=== PATIENT | female | born 1950 | race Caucasian/White ===

== ENCOUNTER 2016-12-04 19:49 | Emergency (ER) | payer MEDICARE, OTHER ==
[~2016-12-04] VITALS: Ht 177.8 cm; Wt 87.9 kg
[~2016-12-04 19:49] MED LIST: ACET-2723 PO; ASPI-557 PO; CALC625T32 PO; CALC750T4 PO; CHLO4TAB32 PO; DIPH25TA54 PO; ESTR0.624 PO; [UNRECOGNIZED DRUG - CODE] PO
[2016-12-04 20:18] VITALS: Ht 177.8 cm; Wt 87.9 kg
--- NOTE | 2016-12-04 20:35 | NUR ---
IMAGING PT TO IMAGING AT THIS TIME
--- NOTE | 2016-12-04 20:36 | ERPDOC ---
Departure Disposition Decision Date: December 04, 2016 Disposition Decision Time: 20:57 (ELHAM REYNOLDS APRN) Disposition: 01 DISCHARGED HOME, SELF-CARE Impression Impression (ELHAM REYNOLDS APRN) Impression: Primary Impression: Radius fracture Encounter type: initial encounter Radius location: distal Fracture type: closed Laterality: right Severity: Moderate (ELHAM REYNOLDS APRN) Condition: Improved Seen By: Mid-level only (ELHAM REYNOLDS APRN) Referrals: FELIPA STOKES MD (Family) Patient Instructions: Wrist Fracture in Adults (ED) Problems/Meds/Labs Reviewed?: Yes Medications reviewed and manag: Yes (ELHAM REYNOLDS APRN) Additional Instructions: Elevate wrist and keep iced. You may take norco 5/325mg 1-2 tabs every 4-6 hours as needed for pain. This medication may cause drowsiness so avoid operating heavy machinery, driving or drinking alcohol while taking. This medication may cause constipation so you may need to take a stool softener. Call [facility] tomorrow and let them know that the ED provider spoke with Dr. Pruitt and he said Dr. Reed is to see you tomorrow in office. Phone # [phone] You may take OTC ibuprofen for pain as needed every 6 hours. You may loosen marino wrap over splint to allow for swelling as needed. Follow treatment plan. Follow up care ordered?: Yes Mental Status: Alert, Oriented (ELHAM RYENOLDS APRN) Scripts Hydrocodone/Acetaminophen ([place] 5-325 Tablet) 5-325 Tablet 1-2 TAB PO Q4-6HPRN for PAIN, #30 TAB Prov: ELHAM REYNOLDS APRN 12/04/16 HPI - Upper Extremity General Chief Complaint: Upper Extremity Injury Stated Complaint: RT WRIST INJ Time Seen by MD: 20:30 Source: patient (ELHAM REYNOLDS APRN) HPI - Upper Extremity Initial Comments 66-year-old female presents to ER with right wrist pain after falling backwards and breaking her fall with her right wrist. Patient says her wrist is painful to move. Patient denies any other injuries from fall. Pain/Severity Scale: Now: 0/10 (no movement), Worst: 10/10 (with movement) Pain/Injury Location: right wrist Method of Injury/Context: fell Quality: aching (ELHAM REYNOLDS APRN) Allergies: Coded Allergies: Penicillins (Verified Allergy, Severe, SWELLING, 12/04/16) Sulfa (Sulfonamide Antibiotics) (Verified Allergy, Mild, HIVES, 12/04/16) lidocaine (Verified Adverse Reaction, Mild, TACHYCARDIA, 12/04/16) Past History Past Medical History Metabolic: hypothyroidism, DENIES: diabetes, hypertension Cardiac: DENIES: angina Respiratory: DENIES: asthma GI: GERD, DENIES: ulcers Female: DENIES: renal insufficiency Neurological: migraines, DENIES: seizures Musculoskeletal: DENIES: rheumatoid arthritis Integumentary: other ("skin cancer") Psychological: DENIES: depression (ELHAM REYNOLDS APRN) Surgical History Reproductive/: hysterectomy (ELHAM REYNOLDS APRN) Family History Family PMH: FOUND: other (noncontributory) (ELHAM REYNOLDS APRN) Vaccines Hx Influenza Vaccination: Yes (APR 2015) Hx Pneumococcal Vaccination: Yes (JUL 2015) (ELHAM REYNOLDS APRN) Social History Marital Status: Sexuality: male partner (ELHAM REYNOLDS APRN) Review of Systems Constitutional Constitutional: DENIES: chills, dizziness, fever, weakness (ELHAM REYNOLDS FISH PITCHER) Eyes General: DENIES: erythema, exudate Lids/Accessories: DENIES: erythema, swelling (ELHAM REYNOLDS FISH PITCHER) ENMT Ears: DENIES: pain Sinuses: DENIES: congestion, rhinorrhea Mouth/Throat: DENIES: sore throat (ELHAM REYNOLDS FISH PITCHER) Cardiovascular Cardiac: DENIES: chest pain, murmur Rhythm/Rate: DENIES: palpitations (ELHAM REYNOLDS FISH PITCHER) Pulmonary Respiratory: DENIES: cough, dyspnea (ELHAM REYNOLDS FISH PITCHER) GI Upper Abdomen: DENIES: nausea, pain, vomiting Lower Abdomen: DENIES: diarrhea, pain (YUSUF REYNOLDSS A FISH PITCHER) General: DENIES: dysuria, pain (YUSUF REYNOLDSS A FISH PITCHER) Musculoskeletal General: DENIES: joint pain, pain, tenderness (ELHAM REYNOLDS A FISH PITCHER) Integumentary Skin: DENIES: color change, itching, rash (YUSUF REYNOLDSS A FISH PITCHER) Neurological General: DENIES: ataxia, change in strength, numbness, paralysis/paresis, weakness (YUSUF REYNOLDSS A FISH PITCHER) Psychiatric Psychiatric: DENIES: anxiety, depression, nervousness (YUSUF REYNOLDSS A FISH PITCHER) Physical Exam General General Nourishment: well nourished, well developed, no acute distress, adult General Body Habitus: well groomed (YUSUF REYNOLDSS A FISH PITCHER) Vitals and Pain Weight: Kilograms: Height (feet): 5 Height (inches): 9.00 Triage Pain Scale: (YUSUF REYNOLDSS A FISH PITCHER) Eyes (brief) Eyes Brief: found: EOMI (YUSUF REYNOLDSS A FISH PITCHER) ENMT (brief) ENMT Brief: NOT FOUND: nasal exudate, nasal swelling (YUSUF REYNOLDSS A FISH PITCHER) Neck (brief) Neck: FOUND: trachea midline (YUSUF REYNOLDSS A FISH PITCHER) Respiratory (brief) Respiratory: FOUND: clear all starks, equal bilaterally, symmetrical (YUSUF REYNOLDSS A FISH PITCHER) Cardiovascular (brief) Cardiac: FOUND: regular rate, regular rhythm (YUSUF REYNOLDSS A FISH PITCHER) Fastrak Hand/Forearm Hand/Forearm : Upper Extremity: Right Elbow: extension intact, flexion intact, NOT FOUND: deformity, ecchymosis, erythema, tender Forearm: deformity (over radius), pronation intact, supination intact, NOT FOUND: ecchymosis, erythema, swelling Wrist: ROM intact, ecchymosis (over radius), swelling (over radius), tender (TTP over radius), NOT FOUND: deformity, snuff box tenderness, thenar eminence tender Hand: NOT FOUND: deformity, ecchymosis, erythema, swelling, tender Fingers: cap refill <2sec ea digit, impaired grasp (due to pain), soft touch intact, NOT FOUND: ecchymosis, erythema, impaired abduction, impaired adduction, impaired extension, impaired flexion, swelling, tender Radial Pulse: 2+ (YUSUF REYNOLDSS A FISH PITCHER) Integumentary (brief) Integumentary Brief: FOUND: dry, pink, warm (YUSUF REYNOLDSS A FISH PITCHER) Neurologic (brief) Neurological Brief: FOUND: motor-no gross deficits, sensory-no gross deficits ( RODOLFOELHAM A FISH PITCHER) Psychiatric (brief) Psychiatric Brief: FOUND: alert, normal affect, oriented (YUSUF REYNOLDSS A FISH PITCHER ) Differential Diagnoses Considering: Contusion, Fracture, Sprain, Strain (ELHAM REYNOLDS APRN) Procedures Procedures Performed Procedures Performed: Reduction of Fracture (VAMSI ANG MD) Reduction of Joint/Fracture Procedure Joint/Fracture Reduc : Consent Obtained: Yes Pre-procedure NV: FOUND: cap refill < 3 sec, good movement, good sensation Location: right distal radius Anesthesia: hematoma block (performed by Elham Reynolds, nurse practitioner) Attempts: 2 Post-procedure NV: FOUND: cap refill < 3 sec, good movement, good sensation Post-procedure xray results Successful reduction of distal radial head Comments Performed by Vamsi Ang M.D. (VAMSI ANG MD) Progress Results/Orders Orders Procedure Category Date Status Time Wrist Right 3-4 Views RAD 12/04/16 Taken 20:23 Bupivacaine 0.5% PHA 12/04/16 Complete (Marcaine 0.5%) 21:15 Wrist Right 2 View RAD 12/04/16 Taken Sling EDM 12/04/16 Transmitted 22:51 Hydrocodone/Apap PHA 12/04/16 Complete 5/325 Prepack ([place] 5 23:15 (VAMSI ANG MD) Medications Current ED Medications Bupivacaine HCl (Marcaine 0.5%) 150 mg O ONCE INFIL ; Start 12/04/16 at 21:15; Stop 12/04/16 at 21:16; Status DC Acetaminophen/ Hydrocodone Bitart (NORCO 5 (PrePack)) 1 pack O ONCE SENT HOME Last administered on 12/04/16t 23:04; Start 12/04/16 at 23:15; Stop 12/04/16 at 23:16; Status DC (VAMSI ANG MD) Consult/PCP Consult/PCP : Type of discussion: Phone Consult/PCP Discussion Details I discussed patient's HPI, PMH, exam findings and x-rays with Dr. Pruitt. Dr. Pruitt would like patient to have a hematoma block then hung in traps. Then he would like to have wrist reduced and then splinted. Patient will need to follow with Dr. Reed in office tomorrow. (ELHAM REYNOLDS APRN) Xray Xray : Xray: Wrist R Interpretation: Abnormal, Interpreted by Me (distal radial fracture, good reduction of fracture) (VAMSI ANG MD) ELHMA REYNOLDS APRN December 04, 2016 20:36 VAMSI ANG MD December 05, 2016 01:08
--- NOTE | 2016-12-04 20:41 | NUR ---
IMAGING PT RETURN FROM IMAGING AT THIS TIME.
[2016-12-04] MEDS ORDERED: IBUP-1724 PO (20:48)
--- NOTE | 2016-12-04 20:55 | NUR ---
PROVIDER Debbie REYNOLDS [place] CONSTABLE AT BEDSIDE
[2016-12-04] MEDS ORDERED: BUPIVACAINE 0.5% (5mg/ml) 30ml INJ SDV INFIL ONE (21:15)
--- NOTE | 2016-12-04 23:07 | NUR ---
STUART REYES APRN ORDERED FOR PT TO TAKE NORCO TABLET FROM PREPAK. ADMINISTERED AT THIS TIME.
[2016-12-04] MEDS ORDERED: HYDR-4246 PO (23:08)
[2016-12-04] MEDS ORDERED: HYDROCODONE/APAP 5/325 (PrePack) SENT HOME ONE (23:15)
--- NOTE | 2016-12-04 23:17 | NUR ---
IMAGING PT TO IMAGING AT THIS TIME.
--- NOTE | 2016-12-04 23:25 | NUR ---
IMAGING PT RETURN FROM IMAGING AT THIS TIME.
[2016-12-04 23:44] VITALS: BP 143/87; PULSE 73; RESP 18; TEMP 97.9; O2SAT 98
--- NOTE | 2016-12-04 23:44 | NUR ---
DEPART PT GIVEN DI FOR WRIST FRACTURE IN ADULTS, NORCO, F/U WITH ORTHO. RX/PREPAK PROVIDED FOR NORCO. PT VERBALIZES UNDERSTANDING OF DI, MEDS, AND F/U. QUESTIONS ASKED/ANSWERED - DENIES FURTHER QUESTIONS/NEEDS AT THIS TIME. PERSONAL BELONGINGS GATHERED. RIGHT WRIST SPLINTED AND IN SLING - ICE PACK APPLIED. PT ESCORTED/AMBULATED TO ED EXIT - GAIT STABLE, NO SIGN OF DISTRESS AT THIS TIME.
--- NOTE | 2016-12-05 08:03 | DI ---
Indication: ITS.REASON: post reduction flim PROCEDURE: WRIST RIGHT 2 VIEW: Encounter: Initial Comparison: Radiographs from earlier on the same date Findings: Interval closed reduction of the comminuted distal radial fracture with improved alignment of the fracture fragments. Tiny ulnar styloid fracture also seen. Splinting material obscuring fine bony detail. Impression: Interval closed reduction and splinting of the distal radial and ulnar styloid fractures. .
--- NOTE | 2016-12-05 08:17 | DI ---
Indication: ITS.REASON: INJURY, PAIN, SWELLING PROCEDURE: WRIST RIGHT 3-4 VIEWS: Encounter: Initial Comparison: None Findings: There is a comminuted impacted and dorsally angulated intra-articular fracture of the distal radius. There is a mildly displaced tiny ulnar styloid fracture also present. No additional acute fracture or dislocation is seen. There is approximately 30 degrees dorsal angulation of the distal radial articular surface. Impression: Closed posttraumatic intra-articular Colles' fracture. .
== END 2016-12-04 23:44 | disposition home or self-care (01) ==
LOC: ED 19:49
DX: S52.531A Colles' fracture of right radius, initial encounter for closed fracture (principal); S52.611A Displaced fracture of right ulna styloid process, initial encounter for closed fracture; W01.0XXA Fall on same level from slipping, tripping and stumbling without subsequent striking against object, initial encounter; Y93.H2 Activity, gardening and landscaping; Y92.007 Garden or yard of unspecified non-institutional (private) residence as the place of occurrence of the external cause; Y99.8 Other external cause status

== ENCOUNTER → 2016-12-10 | Outpatient (CLI) | payer MEDICARE, OTHER ==
[~2016-12-10] MED LIST changes: -ACET-2723 PO; +HYDR-4246 PO; +IBUP-1724 PO; +MULT-933 PO; +TRAM50TA53 PO
--- NOTE | 2016-12-10 10:42 | DI ---
INDICATION: ITS.REASON: Z01.89 PRE-OP EXAM PROCEDURE: CHEST 2-VIEWS UPRIGHT (PA \T\ LAT) Encounter: Initial COMPARISON: None FINDINGS: The lungs are clear without evidence of focal abnormal airspace opacity. There is no pleural effusion or pneumothorax. The heart size, mediastinal contours and pulmonary vascularity are within normal limits. There is no significant skeletal abnormality. IMPRESSION: No acute cardiopulmonary disease. .
[2016-12-10 10:56] LABS: EOSINOPHILS # (AUTO) 0.2 T/MM3 (0-0.5); EOSINOPHILS % (AUTO) 3.8 % (0-4); HGB - HEMOGLOBIN 13.6 GM/DL (12-16); LYMPHOCYTES # (AUTO) 2.4 T/MM3 (1-4.8); LYMPHOCYTES % (AUTO) 39.2 % (23-45); MEAN CORPUSCULAR HGB 32.8 UUG (26-34); MEAN CORPUSCULAR HGB CONC(MCHC 33.2 GM/DL (31-37); MEAN CORPUSCULAR VOLUME 98.8 UM3 (80-100); MEAN PLATELET VOLUME 10.7 UM3 (9.4-12.4); MONOCYTES # (AUTO) 0.5 T/MM3 (0-0.8); MONOCYTES % (AUTO) 8.3 % (0-9.0); NEUTROPHILS % (AUTO) 48.7 % (33-66); RED BLOOD COUNT 4.15 M/MM3 (4.00-5.20); WBC - WHITE BLOOD COUNT 6.1 T/MM3 (4.5-11.0)
[2016-12-10 11:06] LABS: ANION GAP 16 MEQ/L (5-15); BUN/CREATININE RATIO 23 RATIO (6-26); CALCIUM 9.5 MG/DL (8.4-10.2); CHLORIDE 104 MEQ/L (98-107); CO2 - CARBON DIOXIDE 25 MEQ/L (22-30); CREATININE 0.7 MG/DL (0.7-1.2); GLOMERULAR FILTRATION RATE 83; GLUCOSE 83 MG/DL (65-110); POTASSIUM 4.4 MEQ/L (3.6-5); SODIUM 145 MEQ/L (134-144)
== END ==
LOC: IMA 10:03
PROVIDERS: ATTEND Orthopaedic Surgery
DX: Z01.812 Encounter for preprocedural laboratory examination (principal); S52.91XA Unspecified fracture of right forearm, initial encounter for closed fracture; Z01.810 Encounter for preprocedural cardiovascular examination
CPT/HCPCS: 36415; 80048; 85025; 93005

== ENCOUNTER 2016-12-11 05:48 | Day surgery (SDC) | payer MEDICARE, OTHER ==
--- NOTE | 2016-12-10 10:18 | HPF ---
CHIEF COMPLAINT Comminuted closed intraarticular right distal radius fracture. HISTORY OF PRESENT ILLNESS Ms. Montiel is a very pleasant 66-year-old female seen today as a new patient to me. She sustained an injury last Friday evening when she fell in the yard, landing on her outstretched right arm. She was seen at [facility] ER. She underwent closed reduction with hematoma block by the ER staff which obtained a much improved position. She was placed in a sugar-tong splint. She admits to have removed the sugar-tong splint because of swelling. Denies numbness or tingling. Pain is described as moderate. It is located at the wrist . No prior history of injury. She is right-hand dominant. She had taken some [place], but this has caused her some nausea. She has been icing and elevating some. Pain is aggravated by any motion of the wrist, grasping or direct pressure. Denies any other injury. PAST MEDICAL HISTORY Hypothyroidism. GERD. Migraine headaches. MEDICATIONS Levoxyl. Premarin. Tylenol. Aspirin. Benadryl. ALLERGIES Sulfa, Xylocaine. SURGICAL HISTORY Hysterectomy. SOCIAL HISTORY The patient is a nonsmoker, nondrinker. Denies illicit drug use. FAMILY HISTORY Significant for father and sister with arthritis. Mother with diabetes. PHYSICAL EXAMINATION Height 5 ft. 9 in. Weight 201. Blood pressure 121/65. Pulse 60. Constitutional: Well developed, well-nourished. Psychiatric: Alert and oriented x 3, NAD, of normal mood and affect. Skin: No rash or abnormal lesions in bilateral affected extremities. Vascular: 2+ palpable pulses with brisk capillary refill all digits. Neuro: Normal sensation to light touch in bilateral affected extremities. MSK: Gait: Normal-appearing gait without antalgia. No assistive device. Affected extremity. Right upper Inspection: The patient has a sugar-tong splint intact. The Addy bandage overlying has been moved. She has mild to moderate swelling of the hand and fingers. Palpation: Tenderness of the wrist. No tenderness of the hand or elbow. Range of motion: Wrist range of motion is not assessed. She has normal motion of the fingers and shoulder strength. Normal hand strength. Special Tests: Brisk capillary refill to all digits. Contralateral Extremity: Complete examination was performed. Skin is intact. No swelling, no tenderness to palpation. Normal ROM and normal strength and stability were noted. IMAGING X-ray type: Two-view right wrist. Obtained at [facility]. Interpretation: Two views of the right wrist were obtained. There is a comminuted intraarticular fracture of the right distal radius with approximately 15 degrees dorsal angulation. Preoperative imaging was compared to this as well as reduction films showing slight loss of reduction. Radial height is fairly well maintained. There is a small ulnar styloid fracture as well. Bone mineralization is otherwise normal. Impression: Comminuted closed intraarticular right distal radius and ulnar styloid fracture. ASSESSMENT Closed comminuted intraarticular distal radius and ulnar styloid fracture. PLAN I discussed the findings today with the patient regarding the diagnosis, imaging , history, and physical exam. The diagnosis was discussed utilizing models and diagrams. The natural history of the diagnosis was discussed. Options for treatment were reviewed. The patient has already shown some loss of reduction. I recommended open reduction internal fixation of the right distal radius. We discussed the surgery including the technique, rehabilitation, recuperation and overall expectations. We also discussed the risks, benefits, alternatives and potential complications. Will plan to get her scheduled for surgery as soon as possible. We discussed postoperatively extensive icing. As she will have a much smaller splint, we may use a foam elevator as well. Will have to monitor pain medications. She has been fairly intolerant of [place] at this point. Will plan to get her scheduled. BRICE
[2016-12-11] VITALS (18 sets, daily range): BP systolic 124–150; BP diastolic 55–69; PULSE 62–80; RESP 10–16; TEMP 97.1–97.9; O2SAT 94–99; Ht 175.3 cm; Wt 90.6 kg
[~2016-12-11] VITALS: Ht 175.3 cm; Wt 90.6 kg
[~2016-12-11 05:48] MED LIST changes: -TRAM50TA53 PO
--- OUTSIDE RECORDS SUMMARY | 2016-12-11 05:53 | XMS REPORT | Continuity of Care Document ---
Author Author [facility] Organization [facility] Address Unknown Phone Unavailable Support Name Relationship Address Phone FELIPA STOKES MD Caregiver [address] [place] [address] Unavailable NOVEMBERDAHLIA DO Caregiver [address] [address] Unavailable ROMY MARRERO Next Of Kin [address], [place] [phone] c Insurance Providers Guarantor Gene Marrero Address [address] [place] [address] c Email [email or web address] Payer [facility] [employer] [facility] Policy Number [id number] Subscriber's Name Gene Marrero Relationship 18 Self Effective Date 12 Payer Medicare Policy Number [id number] Subscriber's Name Gene Marrero Relationship 18 Self Chief Complaint and Reason for Visit Chief Complaint Upper Extremity Injury Reason for Visit [id number] Problems Past Problems Medical Problem Onset Date Radius fracture Unknown Medications Current Home Medications Medication Dose Units Route Directions Days Qty Instructions Start Date Aspirin (Aspir 81) 81 Mg Tablet.dr 81 Mg Oral Daily 09/07/15 Calcium Carbonate (Tums) 300 Mg Tab.chew 1-2 Tab Oral As Needed 09/07/15 Calcium Polycarbophil (Fiber Tabs) 625 Mg Tablet 625 Mg Oral Daily 09/07/15 Chlorpheniramine Maleate 4 Mg Tablet 1 Mg Oral Daily 09/07/15 Diphenhydramine Hcl (Benadryl Allergy) 25 Mg Tablet 12.5 Mg Oral Bedtime 09/07/15 Estrogens,Conjugated (Premarin) 0.625 Mg Tablet 0.25 Tab Oral Daily 09/07/15 Hydrocodone/Acetaminophen ([place] 5-325 Tablet) 5-325 Tablet 1-2 Tab Oral Every 4-6 Hours Prn for Pain 30 Tablet 12/04/16 Ibuprofen 200 Mg Tablet 200 Mg Oral Every 4 Hours as needed for Pain 12/04/16 Levothyroxine Sodium (Levoxyl) 100 Mcg Tablet 1,100 Mcg Oral Daily 09/07/15 Social History Social History Problem Response Recorded Date/Time Onset Date Status Hx Substance Use No 12/04/2016 8:48pm Not Applicable Not Applicable Hx Alcohol Use No 12/04/2016 8:48pm Not Applicable Not Applicable Has the pt used tobacco in the last 12 months No 09/08/2015 8:49am Not Applicable Not Applicable Query Response Start Date Stop Date Smoking Status Never smoker Hospital Discharge Instructions No hospital discharge instructions. Plan of Care Discharge Date 12/04/16 11:44pm Disposition 01 DISCHARGED HOME, SELF-CARE Condition at Discharge Improved Instructions/Education Provided Wrist Fracture in Adults (ED) Prescriptions See Medication Section Referrals FELIPA STOKES MD Address: [address] [address] Additional Instructions/Education Elevate wrist and keep iced. You may take norco 5/325mg 1-2 tabs every 4-6 hours as needed for pain. This medication may cause drowsiness so avoid operating heavy machinery, driving or drinking alcohol while taking. This medication may cause constipation so you may need to take a stool softener. Call [facility] tomorrow and let them know that the ED provider spoke with Dr. Pruitt and he said Dr. Reed is to see you tomorrow in office. Phone # [phone] You may take OTC ibuprofen for pain as needed every 6 hours. You may loosen marino wrap over splint to allow for swelling as needed. Follow treatment plan. Care Plan and Goals Physician Care Plan Problem: Radius fracture Goal: Follow up with primary care provider Instructions: Take medications and follow care plan as discussed/written Functional Status No functional status results. Allergies, Adverse Reactions, Alerts Allergen Type Severity Reaction Status Last Updated Penicillin Allergy Severe SWELLING Active 12/04/16 Sulfa (Sulfonamide Antibiotics) Allergy Mild HIVES Active 12/04/16 Lidocaine Adverse Reaction Mild TACHYCARDIA Active 12/04/16 Immunizations Query Response on File Recorded Date/Time Hx Influenza Vaccination Y APR 2015 09/08/15 8:49am Hx Pneumococcal Vaccination Y JUL 2015 09/08/15 8:49am Hx Influenza Vaccination Y APR 2015 09/08/15 8:49am Tdap Vaccine Hx UTD PER PT 12/04/16 11:40pm Vital Signs Acute Vital Signs Vital Response Date/Time Temperature (Fahrenheit) 97.9 deg F (96.8 - 99.1) 12/04/2016 11:44pm Temperature (Calculated Celsius) 36.95001 degrees C (36.0 - 37.3) 12/04/2016 11:44pm Pulse Rate (adult) 73 bpm (60 - 100) 12/04/2016 11:44pm Respiratory Rate 18 breaths/min (10 - 20) 12/04/2016 11:44pm O2 Sat by Pulse Oximetry 98 % (90 - 100) 12/04/2016 11:44pm Blood Pressure 143/87 mm Hg 12/04/2016 11:44pm Height (Feet) 5 feet 12/04/2016 8:18pm Height (Inches) 10.00 inches 12/04/2016 8:18pm Weight (Kilograms) 87.900 kg 12/04/2016 8:18pm Body Mass Index (BMI) 27.0 12/04/2016 8:18pm Results No known relevant diagnostic tests, laboratory data and/or discharge summary. Procedures Procedure Status Date Provider(s) Breast tomosynthesis bi Completed 09/12/16 [id number]"SCREENING MAMMOGRAPHY, PRODUCING DIRECT DIGITAL IMAGE Completed Encounters Encounter Location Arrival/Admit Date Discharge/Depart Date Attending Provider Departed Emergency Room [facility] 12/04/16 7:49pm 12/04/16 11: 44pm DAHLIA DUNN DO Registered [facility] 09/12/16 12:52pm KIARA SALGADO Recent Diagnosis
--- NOTE | 2016-12-11 06:40 | ANESPREOP ---
Anesthesia Record Date and Time DATE: 12/11/16 TIME: 06:39 Pre-Op Diagnosis Radius FX Right Proposed Surgical Procedure ORIF R. DISTAL RADIUS NPO since: MN Allergies: Coded Allergies: Penicillins (Verified Allergy, Severe, SWELLING, 12/04/16) Sulfa (Sulfonamide Antibiotics) (Verified Allergy, Mild, HIVES, 12/04/16) codeine (Verified Allergy, Unknown, NAUSEA&VOMITING, 12/10/16) lidocaine (Verified Adverse Reaction, Mild, TACHYCARDIA, 12/04/16) Ht/Wt/BMI Height: 5 ' 9.00 " Weight: 90.600 kg BMI: 29.5 kg/m2 Vital Signs Date Time Temp Pulse Resp B/P Pulse Ox O2 Delivery O2 Flow Rate FiO2 12/11/16 06:22 97.9 62 16 146/69 96 Room Air Medications Inpatient Medications Current Medications Medications (Trade) Dose Ordered Sig/Mackenzie Start Time Stop Time Status Last Admin Dose Admin Lactated Ringer's (Lactated Ringers) 1,000 ml @ 50 mls/hr Q20H 12/11/16 07:00 Aspirin (Aspir 81) 81 Mg Tablet.dr, 81 MG PO DAILY, (Reported) Last Taken: on 12/09/16 Calcium Carbonate (Tums) 300 Mg Tab.chew, 1-2 TAB PO PRN, (Reported) Last Taken: on 12/09/16 Calcium Polycarbophil (Fiber Tabs) 625 Mg Tablet, 625 MG PO DAILY, (Reported) Last Taken: on 12/09/16 Chlorpheniramine Maleate (Chlorpheniramine Maleate ) 4 Mg Tablet, 1 MG PO DAILY, (Reported) Last Taken: on 12/10/16 Diphenhydramine HCl (Benadryl Allergy) 25 Mg Tablet , 12.5 MG PO HS, (Reported) Last Taken: on 12/09/16 Estrogens,Conjugated (Premarin) 0.625 Mg Tablet, 0.25 TAB PO DAILY, (Reported) Last Taken: on 12/10/16 Hydrocodone/Acetaminophen ([place] 5-325 Tablet) 5- 325 Tablet, 1-2 TAB PO Q4-6HPRN Last Taken: on 12/10/16 Ibuprofen (Ibuprofen) 200 Mg Tablet, 200 MG PO Q4H PRN for PAIN, (Reported) Last Taken: on 12/09/16 Levothyroxine Sodium (Levoxyl) 100 Mcg Tablet, 1, 100 MCG PO DAILY, (Reported) Last Taken: on 12/11/16 0400 Multivitamin (Multi-Day Vitamins) 1 Each Tablet , 1 TAB PO DAILY, (Reported) Last Taken: on 12/10/16 Currently on Beta Heaht: No Medical/Surgical History Anesthesia PMH: Reports: Cancer (SKIN CA LEFT EAR), Reflux, Thyroid Disease, Denies: *Diabetes, Anesthesia Reactions (NO AIRWAY ISSUES), Arthritis, Blood Transfusion Reac, Clotting Problems, Glaucoma, Malignant Hyperthermia Smoking Status: Never smoker Use Chewing Tobacco?: No Second Hand Exposure: No Substance Use Type: does not use Alcohol Intake: none HX of Last Menstrual Period: HYST. Past Surgical History Orthopedic Surgeries: Abdominal Surgeries: Genitourinary Surgeries: Cardiac Surgeries: Endocrine Surgeries: Reproductive Surgeries: Yes - HYST. Neurological Surgeries: Ear Surgeries: Nose Surgeries: Throat Surgeries: Other Surgeries: Yes - LEFT BREAST BX,SKIN CA REMOVED Anesthesia Adverse Reactions: FOUND none Family Hx of Anesthesia Advers: none Hx of Motion Sickness: No Pertinent Findings EKG Rhythm: Sinus Rhythm Physical Exam Respiratory: Bilat breath sounds equal, Lungs clear Cardiovascular: FOUND Regular rate, rhythm, FOUND No murmur Airway Assessment Mallampati Score: I TMD: 3 Fingerbreadths Neck Extension: Good Overall Assessment: No Airway Concerns ASA: 2 Plan Anesthesia Plan: LMA Discussion Discussed risks/options/alternatives of anesthesia and questions answered. Patient consents. Nursing pain assessment noted. Attestation Statement Prior to the delivery of any anesthetic medication, I examined the patient, developed the plan, obtained the patient's consent and discussed the risk and benefits of the procedure with the patient/guardian. VICTORIA MORROW CRNA December 11, 2016 06:40
[2016-12-11] MEDS ORDERED: PROPOFOL 200mg 20 ML IV ONE (06:54)
[2016-12-11] MEDS ORDERED: FENTANYL 100mcg/2ml INJECTION ONE (06:54)
[2016-12-11] MEDS ORDERED: BUPIVACAINE 0.25% (2.5mg/ml) INJ 30ml SDV ONE (06:57)
[2016-12-11] MEDS ORDERED: CLINDAMYCIN 600mg IVPB 50 ML IV ONE (07:00)
[2016-12-11] MEDS ORDERED: LR 1,000 ML IV SCH (07:00)
[2016-12-11] MEDS ORDERED: HYDROMORPHONE 2mg/ml INJECTION IV PRN (07:15)
[2016-12-11] MEDS ORDERED: ONDANSETRON 4mg/2ml INJECTION IV PRN ×2 (07:15→10:15)
[2016-12-11] MEDS ORDERED: DEXAMETHASONE 4mg/ml - 1ml INJECTION ONE (07:57)
[2016-12-11] MEDS ORDERED: KETOROLAC 30mg/ml INJECTION ONE (09:05)
[2016-12-11] MEDS ORDERED: TRAM50TA53 PO (09:36)
--- NOTE | 2016-12-11 09:38 | PDPROCED ---
Immediate Operative Note DATE: 12/11/16 TIME: 09:37 Preop Diagnosis: RIGHT COMMINUTED DISTAL RADIUS FRACTURE Postop Diagnosis: Right comminuted distal radius fracture Surgical Procedures: R ORIF Distal Radius w/Volar Plate Surgeon: Sonal [employer] Developer: LESLI Ricardo Anesthesia: General Complications: none Estimated Blood Loss see anesthesia DENNISE FERNANDEZ December 11, 2016 09:38
[2016-12-11] MEDS: MORPHINE 10mg/ml vl INJECTION IV PRN ×2 (09:50→10:09)
--- NOTE | 2016-12-11 09:54 | DI ---
Indication: ITS.REASON: ORIF RT DISTAL RADIUS FX PROCEDURE: RF WRIST RIGHT 2 VIEWS: Encounter: Initial Comparison: Right wrist radiographs dated December 04, 2016 Findings: Three fluoroscopic spot images are submitted for interpretation. Images show open reduction and internal fixation of the pelvis fracture with placement of a volar plate and multiple screws. Improved alignment of the fracture fragments. Impression: Intraoperative fluoroscopy as above. Fluoroscopy time is 119 seconds. Fluoroscopy dose is 374.7 mRad. .
--- NOTE | 2016-12-11 10:39 | ANESPO ---
Post-Op Note Date 12/11/16 Time: 10:35 Status Pt Participated in Evaluation: Pt participated in person Vital Signs Date Time Temp Pulse Resp B/P Pulse Ox O2 Delivery O2 Flow Rate FiO2 12/11/16 10:30 80 11 146/66 96 Room Air 12/11/16 09:50 4.00 12/11/16 09:35 97.1 Respiratory Function: Airway patent, Regular respirations Cardiovascular Function: Regular pulse Mental Status: Alert/oriented Pain Level Intensity: 6 Hydration: Taking po fluids Complications during Recovery None apparent Post-Anesthesia Notes right arm from just below shoulder down to fingers are numb, pain 6/10. Notified Bradley Riley CRNA Follow-Up Instructions Instructions Per Surgeon NESHA GRULLON CRNA December 11, 2016 10:39
--- NOTE | 2016-12-11 15:38 | OPNOTEF ---
DATE OF OPERATION 12/11/2016 PREOPERATIVE DIAGNOSIS Closed comminuted intraarticular right distal radius fracture. POSTOPERATIVE DIAGNOSIS Closed comminuted intraarticular right distal radius fracture. PROCEDURE Open reduction internal fixation right intraarticular distal radius fracture composed of three more fragments. SURGEON Gilberto Pruitt MD RAILWAY SWITCH OPERATOR Tre Valiente PA-C ANESTHESIA General FLUIDS Please refer to Anesthesia chart. EBL Minimal. TOURNIQUET Please refer to Anesthesia chart. COMPLICATIONS None. CONDITION Stable to recovery room. IMPLANTS Synthes volar distal radial locking plate. DESCRIPTION OF PROCEDURE The patient was identified in the preoperative holding area. The operative extremity was identified and appropriately marked. Risks, benefits, alternatives and potential complications were discussed and informed consent was obtained. The patient was taken to the operating theatre, placed supine on the operating table. Appropriate cardiorespiratory monitors were applied. General anesthesia was induced. A tourniquet was applied high on the right arm though not yet inflated. Right upper extremity was sterilely prepped and draped in the usual fashion. Surgical time-out was performed, confirmed with myself, the emr specialist and circulating nurse. Preoperative antibiotics were given. The appropriate surgical landmarks were delineated on the volar aspect of the wrist with a surgical marking pen. The arm was exsanguinated with an Esmarch and the tourniquet inflated. An 7-8 cm incision was created overlying the flexor carpi radialis tendon longitudinally to the level of the flexor crease of the wrist. Electrocautery was used for hemostasis as necessary as blunt dissection was carried through the subcutaneous fat. The FCR tendon was identified. The sheath was incised and the tendon was retracted ulnarly. The floor of the tendon sheath was then incised longitudinally. The radial artery was maintained in a radial direction as retractors were placed. Blunt dissection with a finger lifted the flexor pollicis longus tendon and muscle belly off of the pronator. Deeper retractors were now placed. Dissection was carried distally to reveal the end of the pronator. Sharp dissection along the radial aspect of the distal radius and along the watershed line just below the articular surface were performed with a 15 blade knife. A periosteal elevator was then used to sweep the pronator in an ulnar direction and deeper retractors were placed. The fracture was then evaluated. There was a radial styloid fragment volarly with extension into the joint at the midportion of the radius. This created a separate ulnar-sided fragment as well. There was some comminution on the radial styloid. The brachioradialis tendon was identified and was step-cut to allow for easier reduction of the radial styloid fragment. X-ray was brought in and visualization from the sagittal view showed intraarticular step off with multiple comminuted fragments posteriorly, particularly one dorsal ulnar piece. These were carefully manipulated by direct pressure and indirect reduction utilizing traction techniques. A [place] was inserted under the volar fracture side up into the subchondral bone and used to elevate the subchondral bone back into position. While maintaining ligamentotaxis and overall good reduction, two crossing K-wires were then advanced, securing the major fragments. This was confirmed in the AP and lateral planes. A short regular distal radial locking plate from the streamOnce frag system was then placed along the volar aspect of the wrist. Position was confirmed in the AP and lateral planes with fluoroscopy. It was provisionally fixed with K-wires. Position was again confirmed with fluoroscopy. The distal row of locking screws were placed initially while utilizing fluoroscopy to assure no penetration of the joint. Screw length was measured and then 2 mm taken off so as not to have prominent screws posteriorly. The two radial styloid screws were then placed for fixation of the radial styloid fragment again utilizing fluoroscopy while drilling. This provided stable fixation of the major distal three fragments. Note is made that the proximal distal locking hole on the ulnar side of the plate was utilized to help capture the dorsal ulnar fragment as well. At this time, the three shaft screws were then placed in standard fashion. This provided additional volar tilt to the reduction as the plate was slightly off of bone proximally. Final x-rays were confirmed in multiple planes to assure no penetration of the joint with screws. Screw length seemed to be appropriate as well. The wrist moved freely with no crepitation. The wound was then copiously irrigated. The pronator was then repaired with multiple interrupted #1 Vicryl sutures while also repairing the brachial radialis. Retractors were then placed and the superficial aspect of the wound was irrigated. Standard layered closure was then performed. Sterile dressings were applied followed by an Addy bandage and a volar wrist splint. The patient was awakened from anesthesia and taken to the recovery room in stable and satisfactory condition. BRICE
== END 2016-12-11 12:05 | disposition home or self-care (01) ==
LOC: NSC 05:48
PROVIDERS: ATTEND Orthopaedic Surgery
DX: S52.571A Other intraarticular fracture of lower end of right radius, initial encounter for closed fracture (principal); W18.30XA Fall on same level, unspecified, initial encounter; Y93.9 Activity, unspecified; Y92.007 Garden or yard of unspecified non-institutional (private) residence as the place of occurrence of the external cause; Y99.8 Other external cause status
CPT/HCPCS: 25609; 73100; 76001; C1713; J1100; J1885; J2405; J2704; J3010; J7120